=== PATIENT | male | born 1955 | race Caucasian/White ===

== ENCOUNTER → 2017-11-03 | Outpatient (CLI) | payer BC, OTHER ==
[~2017-11-03] MED LIST: No meds per pt.
[2017-11-03 13:33] LABS: BASOPHILS # (AUTO) 0.05 x10^3/uL (0-0.1); BASOPHILS % (AUTO) 1 % (0-1); EOSINOPHILS # (AUTO) 0.43 x10^3/uL (0-0.4); EOSINOPHILS % (AUTO) 7 % (1-7); LYMPHOCYTES # (AUTO) 1.64 x10^3/uL (1-3.4); LYMPHOCYTES % (AUTO) 26 % (22-44); MD NO; MEAN CORPUSCULAR HEMOGLOBIN 30.3 pg (27.5-34.5); MEAN CORPUSCULAR HGB CONC 33.5 g/dL (33.2-36.2); MEAN CORPUSCULAR VOLUME 90.6 fL (81-97); MEAN PLATELET VOLUME 9.1 fL (7.4-10.4); MONOCYTES # (AUTO) 0.67 x10^3/uL (0.2-0.8); MONOCYTES % (AUTO) 11 % (2-9); NEUTROPHILS # (AUTO) 3.48 x10^3/uL (1.8-6.8); NEUTROPHILS % (AUTO) 56 % (42-75); PLATELET COUNT 271 x10^3/uL (130-400); RED BLOOD COUNT 4.96 x10^6/uL (4.38-5.82); RED CELL DISTRIBUTION WIDTH 13.8 % (9.4-14.8)
[2017-11-03 13:43] LABS: INTERNATIONAL NORMALIZED RATIO 1.06 (0.93-1.1); PROTHROMBIN TIME 10.9 Seconds (9.6-11.5)
[2017-11-03 13:46] LABS: ALANINE AMINOTRANSFERASE 23 U/L (12-78); ALBUMIN 3.8 g/dL (3.4-5.0); ANION GAP 10 mmol/L (5-15); CALCIUM 8.8 mg/dL (8.5-10.1); CHLORIDE 107 mmol/L (98-107)
[2017-11-03 13:48] LABS: ALKALINE PHOSPHATASE 98 U/L (45-117); BILIRUBIN,TOTAL 0.4 mg/dL (0.2-1.0); CREATININE 1.01 mg/dL (0.7-1.3); TOTAL PROTEIN 7.2 g/dL (6.4-8.2)
[2017-11-03 14:03] LABS: HEMOGLOBIN A1C 5.8 % (4.2-6.3)
== END ==
LOC: STAR 12:34
PROVIDERS: ATTEND Orthopaedic Surgery
DX: M16.12 Unilateral primary osteoarthritis, left hip (principal)
CPT/HCPCS: 36415; 80053; 83036; 85025; 85610; 85730; 87081; 93005

== ENCOUNTER 2017-11-13 10:06 | Inpatient (IN) | payer BC, OTHER ==
[~2017-11-13] VITALS: Ht 165.1 cm; Wt 69.4 kg
[~2017-11-13 10:06] MED LIST changes: +EPINEPHRINE 1 MG/ML, 1ML ONE; +KETOROLAC 60 MG/2 ML ONE; +ROPIvacaine/PF 0.5%, 20 ML ONE; +SODIUM CHLORIDE 0.9% 100 ML ONE; +TRANEXAMIC ACID 100 MG/ML, 10ML ONE
[2017-11-13] MEDS ORDERED: LACTATED RINGERS 1,000 ML IV SCH ×2 (10:24→11:00)
[2017-11-13] MEDS ORDERED: VANCOMYCIN PER PHARMACY MC ONE (10:36)
[2017-11-13] MEDS ORDERED: ACETAMINOPHEN 500 MG TABLET PO ONE (11:00)
[2017-11-13] MEDS ORDERED: GABAPENTIN 300 MG CAPSULE PO ONE (11:00)
[2017-11-13] MEDS ORDERED: VANCOMYCIN 1,400 MG in SODIUM CHLORIDE 0.9% 250 ML IV ONE (11:00)
[2017-11-13] MEDS ORDERED: MIDAZOLAM 1 MG/ML, 2ML ONE (11:10)
[2017-11-13] MEDS ORDERED: FENTANYL PF 250 MCG/5ML ONE (11:10)
[2017-11-13] MEDS ORDERED: PROPOFOL 10 MG/ML, 20ML ONE (11:13)
[2017-11-13] MEDS ORDERED: ONDANSETRON 2MG/ML, 2ML ONE (11:13)
[2017-11-13] MEDS ORDERED: CEFAZOLIN 1,000 MG ONE (11:13)
[2017-11-13] MEDS ORDERED: DEXAMETHASONE 4 MG/ML, 1ML ONE (11:13)
[2017-11-13 11:14] VITALS: BP 128/88
[2017-11-13] MEDS ORDERED: VANCOMYCIN 1,000 MG ONE (11:24)
[2017-11-13] MEDS ORDERED: OxyconTIN ER 20 MG TAB.ER ONE (11:48)
[2017-11-13] MEDS ORDERED: OxyconTIN ER 20 MG TAB.ER PO ONE (12:00)
[2017-11-13] MEDS ORDERED: PHENYLEPHRINE 10 MG/ML ONE (12:02)
[2017-11-13] MEDS ORDERED: NS + 20MEQ KCL 1,000 ML IV SCH (12:07)
[2017-11-13] MEDS ORDERED: SCOPOLAMINE PATCH, 1.5MG PATCH.TD72 TD ONE (12:30)
[2017-11-13] MEDS ORDERED: BISACODYL 10 MG SUPP PR PRN (12:30)
[2017-11-13] MEDS ORDERED: SENNA/DOCUSATE TABLET PO PRN (12:30)
[2017-11-13] MEDS ORDERED: OXYcodone IR 5MG TABLET PO PRN (12:30)
[2017-11-13] MEDS ORDERED: MEPERIDINE/PF 25MG/0.5ML IVPush PRN (12:30)
[2017-11-13] MEDS ORDERED: PROMETHAZINE 25 MG/ML, 1ML IV PRN (12:30)
[2017-11-13] MEDS ORDERED: MAGNESIUM HYDROXIDE 8%, 30ML UDC PO PRN (12:30)
[2017-11-13] MEDS ORDERED: OXYcodone 5 MG/5 ML ORAL.SOL UDC PO PRN (12:30)
[2017-11-13] MEDS ORDERED: ONDANSETRON 4 MG TABLET PO PRN (12:30)
[2017-11-13] MEDS ORDERED: DIPHENHYDRAMINE 25 MG CAPSULE PO PRN (12:30)
[2017-11-13] MEDS ORDERED: ONDANSETRON 2MG/ML, 2ML IVPush PRN (12:30)
[2017-11-13] MEDS ORDERED: ZOLPIDEM 5MG TABLET PO PRN (12:30)
[2017-11-13] MEDS ORDERED: MORPHINE SULFATE 4 MG/ML, 1ML IV PRN (12:30)
[2017-11-13] MEDS ORDERED: HYDROcodone/APAP 5/325 TABLET PO PRN (12:30)
[2017-11-13] MEDS ORDERED: HYDROcodone/APAP 7.5-325MG/15ML UDC PO PRN (12:30)
[2017-11-13] MEDS ORDERED: ACETAMINOPHEN 650 MG/20.3 ML UDC PO PRN (12:30)
[2017-11-13] MEDS ORDERED: ONDANSETRON 2MG/ML, 2ML IV PRN (12:30)
[2017-11-13] MEDS ORDERED: OXYcodone 5 MG/5 ML ORAL.SOL UDC ONE (13:54)
[2017-11-13] MEDS ORDERED: FENTANYL PF 100 MCG/2ML ONE (13:54)
[2017-11-13] MEDS: FENTANYL PF 100 MCG/2ML IV PRN ×2 (13:58→14:04)
[2017-11-13] MEDS ORDERED: OXYC5CAP2 PO (15:57)
[2017-11-13] MEDS ORDERED: TRAM50TA2 PO (15:58)
[2017-11-13] MEDS ORDERED: MELO7.5T31 PO (15:59)
[2017-11-13] MEDS ORDERED: ASPIRIN 81 MG TABLET EC PO SCH (18:00)
[2017-11-13] MEDS ORDERED: CEFAZOLIN PMX 2GM/50ML 50 ML IVPB SCH (19:00)
[2017-11-13] MEDS ORDERED: DOCUSATE 100 MG CAPSULE PO SCH (21:00)
[2017-11-14] MEDS ORDERED: DEXAMETHASONE 4 MG/ML, 1ML IVPush SCH (06:00)
== END 2017-11-13 17:55 | disposition home or self-care (01) | DRG 470 ==
LOC: ORIP 10:06 → 4NOR 14:51
PROVIDERS: ADMIT Orthopaedic Surgery; ATTEND Orthopaedic Surgery
PROC: 0SRB06Z Replacement of Left Hip Joint with Oxidized Zirconium on Polyethylene Synthetic Substitute, Open Approach (ICD-10-PCS; principal; 2017-11-13 12:15)
DX: M16.12 Unilateral primary osteoarthritis, left hip (principal)
CPT/HCPCS: 36415; 72170; 76001; 86850; 86900; C1713; J0171; J0690; J1100; J1885; J2250; J2405; J2704; J2795; J3010; J3370; C1776; J2370; J7050; J7120